=== PATIENT | male | born 1965 | race Caucasian/White ===

== ENCOUNTER 2018-04-30 13:22 | Inpatient (IN) ==
[2018-04-30] MEDS ORDERED: ALBUTEROL SULFATE/IPRATROPIUM 3 ML NEBU IH ONE ×2 (13:27)
[2018-04-30] MEDS ORDERED: METHYLPREDNISOLONE SOD SUCC/PF 125 MG/2 ML VIAL IV ONE (13:29)
[2018-04-30] MEDS ORDERED: METHYLPREDNISOLONE SOD SUCC/PF 125 MG/2 ML VIAL ONE (13:37)
[2018-04-30 13:56] LABS: Hematocrit 39.7 % (42.0-52.0); Hemoglobin 13.4 gm/dL (13.5-18.0); Mean Corpuscular Hemoglobin 28.7 pg (27-31); Mean Corpuscular Hgb Conc 33.8 g/dl (32-36); Mean Platelet Volume 10.4 fl (8-11.3); Neutrophil # 7.2 K/mm3 (1.3-6.0); Neutrophil % 75.5 % (42-75.0); Platelet Count 238 K/mm3 (150-450); Red Blood Count 4.67 M/mm3 (4.7-6.0); Red Cell Distribution Width 13.4 % (11.5-14.0); White Blood Count 9.5 K/mm3 (4.0-10.5)
[2018-04-30 14:11] LABS: ALT 45 U/L (19-67); AST 61 U/L (0-48); Albumin * 3.1 gm/dl (3.4-5.0); Alkaline Phosphatase * 101 U/L (50-170); Anion Gap 13.5 mmol/L (6.8-13.8); BNP * 270 pg/mL (5-140); BUN/Creatinine Ratio 13.5 (9.0-21.6); Bilirubin, Total 0.9 mg/dL (0.0-1.1); Blood Urea Nitrogen 14 mg/dL (6-23); Ca. Corrected For Albumin 8.9 mg/dL (8.4-10.2); Calcium * 8.5 mg/dL (7.9-10.9); Carbon Dioxide 24.4 mmol/L (24-32.6); Chloride 102 mmol/L (97-106); Glucose * 96 mg/dL (70-110); Potassium 3.9 mmol/L (3.4-4.6); Sodium 136 mmol/L (132-142); Total Protein 7.5 gm/dL (6.2-8.2); Troponin I Less than 0.017 ng/mL (0.00-0.10)
--- NOTE | 2018-04-30 15:08 | ERNOTE ---
Dyspnea - Date Date of Service: 04/30/18 - General Presenting Symptoms: shortness of breath, difficulty of breathing, wheezing Time Seen by Provider: 04/30/18 13:27 Source: patient Exam Limitations: no limitations - Immun/Allergies/Home Medications Immunizations: IMMUNIZATION HX Immunizations Up to Date Yes History of Influenza Vaccine No Allergies/Adverse Reactions: Allergies codeine Adverse Reaction (Verified 04/30/18 13:33) Nausea Home Medications: HOME MEDICATIONS escitalopram 5 mg tablet 5 mg PO DAILY #90 tab 03/16/18 [Last Taken Unknown] albuterol sulfate HFA 90 mcg/actuation aerosol inhaler 2 inh IH Q8H PRN 30 Days #8.5 g 04/28/18 [Last Taken Unknown] azithromycin 250 mg tablet See Rx Instructions PO .COMPLEX 5 Days #6 tab 04/28/18 [Last Taken Unknown] benzonatate 100 mg capsule 100 mg PO TID 10 Days #30 cap 04/28/18 [Last Taken Unknown] prednisone 20 mg tablet 40 mg PO DAILY 5 Days #10 tab 04/28/18 [Last Taken Unknown] - History of Present Illness Narrative: patient has had outpatient treatment for bronchitis, has continued to have respiratory difficulty, arrives in ed with o2 sats in low 80's Severity: moderate 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 Initiating event: Reports: upper resp illness Frequency of episodes: Reports: frequent episodes Modifying Factors - (Improves): Reports: nothing Modifying Factors (Worsens): Reports: activity Associated Symptoms-Dyspnea: Reports: cough, wheezing, dizziness, lightheadedness Prior Treatment: Reports: recently seen, treated by physician Review of Systems - Narrative Narrative: hx of copd - Review of Systems Constitutional: Present: See HPI, weakness, fatigue, malaise EYE: Present: no symptoms reported ENT: Present: no symptoms reported Respiratory: Present: See HPI, shortness of breath, cough, orthopnea, wheezing Cardiology: Present: no symptoms reported Gastrointestinal/Abdominal: Present: no symptoms reported Genitourinary: Present: no symptoms reported Musculoskeletal: Present: no symptoms reported Skin: Present: no symptoms reported Neurological: Present: no symptoms reported Endocrine: Present: no symptoms reported Hematologic/Lymphatic: Present: no symptoms reported Psych: Present: no symptoms reported All Other Systems: All systems neg except as marked Medical History (Last Reviewed 04/30/18 @ 13:33 by Irena Kwan RN) Hyperlipidemia (Chronic) Onset Date: Unknown GERD (gastroesophageal reflux disease) (Chronic) Onset Date: Unknown Conjunctivitis (Acute) Onset Date: Unknown Anxiety (Chronic) Onset Date: Unknown Surgical History: Surgical History (Last Reviewed 04/30/18 @ 13:33 by Irena Kwan RN) H/O esophagogastroduodenoscopy (Acute) Onset Date: Unknown S/P colonoscopy (Acute) Onset Date: Unknown S/P cholecystectomy (Acute) Onset Date: ~2003 Family History: Family History (Last Reviewed 04/30/18 @ 13:33 by Irena Kwan RN) Mother CHF (congestive heart failure) Diabetes Father Cancer Diabetes Social History: Preferred Language Dominican Smoking Status Current every day smoker Have you smoked in the past 12 Yes months Alcohol Use none Drug Use none (Last Updated 04/29/18 @ 14:59 by CASI Gross) No Social History Section defined Physical Exam - Physical Exam General Appearance: Present: moderate distress Head Exam: Present: normal inspection, no evidence of injury Eye Exam: Normal inspection: bilateral, PERRL: bilateral, EOMI: bilateral Ears, Nose, Throat: Present: normal ENT inspection, normal pharynx Neck: Present: normal inspection, nontender Respiratory: Present: respiratory distress, accessory muscle use, decreased breath sounds, expiration (prolonged), crackles, rales, rhonchi, wheezing Cardiovascular/Chest: Present: regular rate, rhythm, no murmur, normal peripheral pulses Peripheral Pulses: N=norm/S=strong/W=weak/B=bound/A=absent: Carotid (R): Normal, Carotid (L): Normal, Radial (R): Normal, Radial (L): Normal, Femoral (R): Normal, Femoral (L): Normal, Dorsalis-pedis (R): Normal, Dorsalis-pedis (L): Normal Gastrointestinal/Abdominal: Present: normal bowel sounds, nontender, nondistended, soft, no organomegaly Back Exam: Present: normal inspection, normal range of motion, no CVA tenderness, no vertebral tenderness Extremity Exam: Present: normal inspection, non-tender, normal range of motion, no edema Neurological Exam: Present: alert, oriented, normal mood/affect, no motor/sensory deficits Skin Exam: Present: normal color, warm/dry Lymphatic Exam: Present: no adenopathy ED Progress - Date and Time Seen: Date and Time: 04/30/18 15:04 patient improved, discussed results and labs with patient, recommend admission to observation, case discuseed with dr ospina who acerts admission - Results and Orders Patient's Lab Results:: I have reviewed the patient's lab results. - Vital Signs Patient's Vital Signs:: I have reviewed the patient's vital signs. Vital Signs: Vital Signs 04/30/18 13:28 04/30/18 13:30 04/30/18 13:35 Temperature 37.6 C Pulse Rate 94 100 Respiratory Rate 29 H 29 H Blood Pressure 133/79 O2 Sat by Pulse Oximetry 88 L 88 L 91 L 04/30/18 13:46 04/30/18 14:00 04/30/18 14:03 Temperature Pulse Rate 100 101 H 100 Respiratory Rate 29 H 31 H Blood Pressure 125/76 O2 Sat by Pulse Oximetry 97 96 04/30/18 14:30 04/30/18 14:44 Temperature Pulse Rate 99 Respiratory Rate 23 H Blood Pressure 122/66 O2 Sat by Pulse Oximetry 94 89 L - EKG EKG: NSR - X-Ray X-Ray #1 X-Ray: chest Interpretation: Discd w/ radiologist - interstitial lung disease, lingular pneumonia - Progress/Reassessment Chief Complaint: Dyspnea Progress:: Improved - Transfer of Care Expected Disposition: Admit Plan - Plan Plan: to admit to observation Departure Clinical Impression: Pneumonia, COPD (chronic obstructive pulmonary disease) with acute bronchitis - Departure Disposition: Home self-care Condition: Fair Instructions: Community-Acquired Pneumonia, Adult, [id number]
[2018-04-30] MEDS ORDERED: ALBUTEROL SULFATE 2.5 MG/0.5 ML VIAL.NEB IH PRN ×2 (15:25→17:45)
[2018-04-30] MEDS: NORMAL SALINE 1,000 ML IV PRN (16:27)
[2018-04-30] MEDS: AZITHROMYCIN 500 MG in DEXTROSE 5 % IN WATER 250 ML IV SCH ×2 (16:28)
[2018-04-30] MEDS ORDERED: ACETAMINOPHEN 500 MG TABLET PO PRN (17:33)
[2018-04-30] MEDS: METHYLPREDNISOLONE SOD SUCC/PF 40 MG/ML VIAL IV SCH ×2 (17:34→21:42)
--- NOTE | 2018-04-30 18:10 | HP ---
Chief Complaint - Chief Complaint Date of Service: 04/30/18 Time of Service: 17:53 Chief Complaint: I got difficulty breathing and fever for 1 week. History of Present Illness: 52 y/o male with PMHx of COPD and nicotine dependence was admitted to outpx observation for progressive SOB with hypoxemia that has been progressively worsening over the past few days. Delmi reports his symptoms started when he cleaned out his parents basement that had been shut up for over a year. He suspects that he must've inhaled mold and dust that is contained in the basement, because shortly after cleaning the basement he began having sob, fever, and weakness. Delmi was seen in the [facility] earlier thi week where he was prescribed oral antibx which he had not completed before coming to the ER. His difficulty breathing became severe and he was found to have low Ox saturation in [facility] f/u. Delmi was sent to ER from there. Medical History (Last Reviewed 04/30/18 @ 16:34 by Priyanka Morgan RN) Hyperlipidemia (Chronic) Onset Date: Unknown GERD (gastroesophageal reflux disease) (Chronic) Onset Date: Unknown Conjunctivitis (Acute) Onset Date: Unknown Anxiety (Chronic) Onset Date: Unknown Surgical History: Surgical History (Last Reviewed 04/30/18 @ 16:35 by Priyanka Morgan RN) H/O esophagogastroduodenoscopy (Acute) Onset Date: Unknown S/P colonoscopy (Acute) Onset Date: Unknown S/P cholecystectomy (Acute) Onset Date: ~2003 Family History: Family History (Last Reviewed 04/30/18 @ 16:35 by Priyanka Morgan RN) Mother CHF (congestive heart failure) Diabetes Father Cancer Diabetes Social History: Patient Lives/Resources 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 Smoking Status Current every day smoker Have you smoked in the past 12 Yes months Alcohol Use none Drug Use none (Last Updated 04/29/18 @ 14:59 by CASI Gross) No Social History Section defined Peds Patient Hx - Developmental: No Pertinent Hx Peds Patient Hx - Medical: No Pertinent Hx Peds Patient Hx - Cardiac/Respiratory: No Pertinent Hx Peds Patient Hx - Surgical: No Surgical History Patient History - Cancer: No Hx of Cancer Review Of Systems (GEN) - Review of Systems Generalized/Overall Review: Present: Weakness, Chills, Fever, Malaise EENTM: Present: No Symptoms Reported Respiratory: Present: Cough, Shortness of Breath Cardiac: Present: No Symptoms Reported Abdominal: Present: No Symptoms Reported Genitourinary: Present: No Symptoms Reported Musculoskeletal: Present: No Symptoms Reported Neurological: Present: No Symptoms Reported Skin: Present: No Symptoms Reported Endocrine: Present: No Symptoms Reported Immunizations: IMMUNIZATION HX Immunizations Up to Date Yes History of Influenza Vaccine No Allergies/Adverse Reactions: Allergies Allergy/AdvReac Type Severity Reaction Status Date / Time codeine AdvReac Mild Nausea Verified 04/30/18 16:36 Home Medications: HOME MEDICATIONS escitalopram 5 mg tablet 5 mg PO DAILY #90 tab 03/16/18 [Last Taken 04/28/18] albuterol sulfate HFA 90 mcg/actuation aerosol inhaler 2 inh IH Q8H PRN 30 Days #8.5 g 04/28/18 [Last Taken 04/29/18] azithromycin 250 mg tablet See Rx Instructions PO .COMPLEX 5 Days #6 tab 04/28/18 [Last Taken 04/29/18] benzonatate 100 mg capsule 100 mg PO TID 10 Days #30 cap 04/28/18 [Last Taken 04/29/18] prednisone 20 mg tablet 40 mg PO DAILY 5 Days #10 tab 04/28/18 [Last Taken Unknown] Exam - Exam Vital Signs: Vital Signs - Last Taken Temp 36.3 C 04/30/18 15:28 Pulse 84 04/30/18 15:28 Resp 20 04/30/18 15:28 BP 126/70 04/30/18 15:28 Pulse Ox 96 04/30/18 15:28 Constitutional: Present: Alert, Oriented x3, Cooperative, Well developed, Well nourished, Mild distress ENT Exam: Present: normal ENT inspection, hearing grossly normal, pharynx normal, TMs normal Eye Exam: bilateral eye: normal inspection, PERRL, EOMI Neck: Present: non-tender, full range of motion, supple, normal inspection, trachea midline Back Exam: Present: normal inspection, no CVA tenderness, no vertebral tenderness Breasts: Present: Exam deferred Respiratory: Present: decreased breath sounds, crackles Cardiovascular/Chest: Present: normal peripheral pulses, regular rate, rhythm, no chest tenderness, no edema, no gallop, no JVD, no murmur Peripheral Pulses: carotid (R): 4+, carotid (L): 4+, femoral (R): 4+, femoral (L): 4+, dorsalis-pedis (R): 4+, dorsalis-pedis (L): 4+, radial (R): 4+, radial (L): 4+ Abdomen: Present: Normal bowel sounds, soft, nontender, nondistended, no rebound tenderness /Rectal: Present: Exam deferred Extremity: Present: normal range of motion, non-tender, normal inspection, no pedal edema, no calf tenderness Skin Exam: Present: normal color, warm/dry, no cyanosis Lymphatic: Present: no adenopathy Neurologic: Present: piano maker II-XII nml as tested Appearance: Present: appropriate appearance, appropriate insight, neat, no memory impairment Eye contact: Present: cooperative, good eye contact, normal speech Thoughts: Present: normal thought pattern, no apparent hallucination Diagnostic Studies: Abnormal Lab Results 04/30/18 04/30/18 04/30/18 Range/Units 13:27 13:45 13:45 RBC 4.67 L (4.7-6.0) M/mm3 Hgb 13.4 L (13.5-18.0) gm/dL Hct 39.7 L (42.0-52.0) % Immature Gran % (Auto) 0.70 H (0.001-0.429) % Immature Gran # (Auto) 0.07 H (0.000-0.0310) K/mm3 Neutrophils % 75.5 H (42-75.0) % Lymphocytes % 15.3 L (20-51) % Neutrophils # 7.2 H (1.3-6.0) K/mm3 Lymphocytes # 1.45 L (1.5-3.5) k/mm3 pCO2 31.6 L (35.0-48.0) mmHg AST 61 H (0-48) U/L B-Natriuretic Peptide 270 H (5-140) pg/mL Albumin 3.1 L (3.4-5.0) gm/dl Laboratory Results WBC 9.5 K/mm3 (4.0-10.5) 04/30/18 13:45 RBC 4.67 M/mm3 (4.7-6.0) L 04/30/18 13:45 Hgb 13.4 gm/dL (13.5-18.0) L 04/30/18 13:45 Hct 39.7 % (42.0-52.0) L 04/30/18 13:45 MCV 85.0 fl (78-100) 04/30/18 13:45 MCH 28.7 pg (27-31) 04/30/18 13:45 MCHC 33.8 g/dl (32-36) 04/30/18 13:45 RDW 13.4 % (11.5-14.0) 04/30/18 13:45 Plt Count 238 K/mm3 (150-450) 04/30/18 13:45 MPV 10.4 fl (8-11.3) 04/30/18 13:45 Immature Gran % (Auto) 0.70 % (0.001-0.429) H 04/30/18 13:45 Immature Gran # (Auto) 0.07 K/mm3 (0.000-0.0310) H 04/30/18 13:45 Neutrophils % 75.5 % (42-75.0) H 04/30/18 13:45 Lymphocytes % 15.3 % (20-51) L 04/30/18 13:45 Monocytes % 7.7 % (0.0-9) 04/30/18 13:45 Eosinophils % 0.4 % (0.0-3.0) 04/30/18 13:45 Basophils % 0.4 % (0.0-1.0) 04/30/18 13:45 Nucleated RBC % 0.0 k/mm3 (0-1) 04/30/18 13:45 Neutrophils # 7.2 K/mm3 (1.3-6.0) H 04/30/18 13:45 Lymphocytes # 1.45 k/mm3 (1.5-3.5) L 04/30/18 13:45 Monocytes # 0.7 k/mm3 (0.0-1.0) 04/30/18 13:45 Eosinophils # 0.0 k/mm3 (0.0-0.7) 04/30/18 13:45 Absolute Basophils 0.0 k/mm3 (0.0-0.1) 04/30/18 13:45 pCO2 31.6 mmHg (35.0-48.0) L 04/30/18 13:27 pO2 92.7 mmHg (83.0-108.0) 04/30/18 13:27 HCO3 21.2 mmol/L (21.0-28.0) 04/30/18 13:27 Total CO2 22.2 mmol/L (19.0-24.0) 04/30/18 13:27 Base Excess -2.0 mmol/L (-2.0-3.0) 04/30/18 13:27 ABG pH 7.45 (7.35-7.45) 04/30/18 13:27 ABG O2 Sat (Measured) 97.4 % (94.0-98.0) 04/30/18 13:27 Sodium 136 mmol/L (132-142) 04/30/18 13:45 Plasma Sodium 136 mmol/L (130-142) 04/30/18 13:45 Potassium 3.9 mmol/L (3.4-4.6) 04/30/18 13:45 Chloride 102 mmol/L (97-106) 04/30/18 13:45 Carbon Dioxide 24.4 mmol/L (24-32.6) 04/30/18 13:45 Anion Gap 13.5 mmol/L (6.8-13.8) 04/30/18 13:45 BUN 14 mg/dL (6-23) 04/30/18 13:45 Creatinine 1.04 mg/dL (0.4-1.4) 04/30/18 13:45 Est GFR (Non-Af Amer) 79 mL/min (60-130) 04/30/18 13:45 BUN/Creatinine Ratio 13.5 (9.0-21.6) 04/30/18 13:45 Random Glucose 96 mg/dL (70-110) 04/30/18 13:45 Calcium 8.5 mg/dL (7.9-10.9) 04/30/18 13:45 Calcium Adj for Albumin 8.9 mg/dL (8.4-10.2) 04/30/18 13:45 Total Bilirubin 0.9 mg/dL (0.0-1.1) 04/30/18 13:45 AST 61 U/L (0-48) H 04/30/18 13:45 ALT 45 U/L (19-67) 04/30/18 13:45 Alkaline Phosphatase 101 U/L (50-170) 04/30/18 13:45 Troponin I Less than 0.017 ng/mL (0.00-0.10) 04/30/18 13:45 B-Natriuretic Peptide 270 pg/mL (5-140) H 04/30/18 13:45 Total Protein 7.5 gm/dL (6.2-8.2) 04/30/18 13:45 Albumin 3.1 gm/dl (3.4-5.0) L 04/30/18 13:45 Assessment/Plan - Narrative Narrative: Px was admitted to outpatient observation for Left lingular BKP and COPD exacerbation. He will be managed with IV antibx, IV steroids, BRENDA, and oxygen therapy. We will reevaluate him in the morning for improvement. F/U labs were ordered. - Assessment/Plan (1) Left upper lobe pneumonia Problem: Acute (2) COPD exacerbation Problem: Acute
[2018-04-30] MEDS: FAMOTIDINE 20 MG in DEXTROSE 5 % IN WATER 100 ML IV SCH ×2 (19:13)
[2018-05-01] MEDS: NORMAL SALINE 1,000 ML IV PRN ×3 (01:28→20:59)
[2018-05-01] MEDS: METHYLPREDNISOLONE SOD SUCC/PF 40 MG/ML VIAL IV SCH ×3 (03:39→15:23)
[2018-05-01] MEDS: FAMOTIDINE 20 MG in DEXTROSE 5 % IN WATER 100 ML IV SCH ×4 (05:16→16:51)
[2018-05-01 05:33] LABS: Hematocrit 38.9 % (42.0-52.0); Mean Cell Volume 84.4 fl (78-100); Mean Corpuscular Hemoglobin 28.2 pg (27-31); Mean Corpuscular Hgb Conc 33.4 g/dl (32-36); Mean Platelet Volume 10.3 fl (8-11.3); Neutrophil # 10.8 K/mm3 (1.3-6.0); Neutrophil % 91.2 % (42-75.0); Platelet Count 258 K/mm3 (150-450); Red Blood Count 4.61 M/mm3 (4.7-6.0); Red Cell Distribution Width 13.1 % (11.5-14.0); White Blood Count 11.8 K/mm3 (4.0-10.5)
[2018-05-01] MEDS: BENZONATATE 100 MG CAPSULE PO SCH ×3 (08:20→16:46)
[2018-05-01] MEDS: ESCITALOPRAM OXALATE 10 MG TAB PO SCH (08:20)
--- NOTE | 2018-05-01 12:35 | PN ---
Subjective - Date and Time Seen Date: 05/01/18 Time: 12:26 Subjective Narrative: I still have SOB with mild exertion Objective Objective Narrative: 52 y/o male admitted for left upper lobe pneumonia was evaluated at bedside and was found to be acutely ill with productive cough and SOB. Px remains dependent on o2 and breathing treatment with BRENDA. Breathing treatment with Duoneb was ordered round the clock to improve his breathing. WBC showed a mildly increase but that might be secondary to IV steroids. We will continue IV antibx, IV steroids, O2, and breathing treated by RT. - Review of Systems Generalized/Overall Review: Reports: No Symptoms Reported EENTM: Reports: No Symptoms Reported Respiratory: Reports: Cough, Shortness of Breath, Wheezing Cardiac: Reports: No Symptoms Reported Abdominal: Reports: No Symptoms Reported Genitourinary Symptoms: Reports: No Symptoms Reported Musculoskeletal Complaints: Reports: No Symptoms Reported Neurological: Reports: No Symptoms Reported Skin: Reports: No Symptoms Reported Endocrine: Reports: No Symptoms Reported Misc: All systems neg except as marked - Vitals Vitals: Last Vital Signs Temp 36.5 C 05/01/18 10:00 Pulse 76 05/01/18 10:00 Resp 20 05/01/18 10:00 BP 116/71 05/01/18 10:00 Pulse Ox 93 05/01/18 10:00 - Abnormal Lab Findings Abnormal Lab Findings: Abnormal Lab Results 04/30/18 04/30/18 04/30/18 Range/Units 13:27 13:45 13:45 WBC (4.0-10.5) K/mm3 RBC 4.67 L (4.7-6.0) M/mm3 Hgb 13.4 L (13.5-18.0) gm/dL Hct 39.7 L (42.0-52.0) % Immature Gran % (Auto) 0.70 H (0.001-0.429) % Immature Gran # (Auto) 0.07 H (0.000-0.0310) K/mm3 Neutrophils % 75.5 H (42-75.0) % Lymphocytes % 15.3 L (20-51) % Neutrophils # 7.2 H (1.3-6.0) K/mm3 Lymphocytes # 1.45 L (1.5-3.5) k/mm3 pCO2 31.6 L (35.0-48.0) mmHg AST 61 H (0-48) U/L B-Natriuretic Peptide 270 H (5-140) pg/mL Albumin 3.1 L (3.4-5.0) gm/dl Acetaminophen (10.0-30.0) mcg/mL 04/30/18 05/01/18 Range/Units 13:45 05:05 WBC 11.8 H D (4.0-10.5) K/mm3 RBC 4.61 L (4.7-6.0) M/mm3 Hgb 13.0 L (13.5-18.0) gm/dL Hct 38.9 L (42.0-52.0) % Immature Gran % (Auto) 0.80 H (0.001-0.429) % Immature Gran # (Auto) 0.10 H (0.000-0.0310) K/mm3 Neutrophils % 91.2 H (42-75.0) % Lymphocytes % 6.1 L (20-51) % Neutrophils # 10.8 H (1.3-6.0) K/mm3 Lymphocytes # 0.72 L (1.5-3.5) k/mm3 pCO2 (35.0-48.0) mmHg AST (0-48) U/L B-Natriuretic Peptide (5-140) pg/mL Albumin (3.4-5.0) gm/dl Acetaminophen Less than 0.2 L (10.0-30.0) mcg/mL - Exam Constitutional: Present: Alert, Oriented x3, Cooperative, Well developed, Well nourished, Mild distress ENT Exam: Present: normal ENT inspection, hearing grossly normal, pharynx normal, TMs normal Neck: Present: non-tender, full range of motion, supple, normal inspection, trachea midline Breasts: Present: Exam deferred Respiratory: Present: decreased breath sounds, wheezing Cardiovascular/Chest: Present: normal peripheral pulses, regular rate, rhythm, no chest tenderness, no edema, no gallop, no JVD, no murmur Abdomen: Present: Normal bowel sounds, soft, nontender, nondistended, no rebound tenderness /Rectal: Present: Exam deferred Extremity: Present: normal range of motion, non-tender, normal inspection, no pedal edema, no calf tenderness Skin Exam: Present: normal color, warm/dry, no cyanosis Lymphatic: Present: no adenopathy Neurologic: Present: algologist II-XII nml as tested Appearance: Present: appropriate appearance Eye contact: Present: cooperative, good eye contact, normal speech Thoughts: Present: normal thought pattern Assessment/Plan - Problems/Diagnosis (1) Left upper lobe pneumonia Problem: Acute (2) COPD exacerbation Problem: Acute
[2018-05-01] MEDS: ALBUTEROL SULFATE/IPRATROPIUM 3 ML NEBU IH SCH ×3 (12:48→18:01)
[2018-05-01] MEDS: AZITHROMYCIN 500 MG in DEXTROSE 5 % IN WATER 250 ML IV SCH ×2 (15:25)
[2018-05-01] MEDS: LEVALBUTEROL HCL 1.25 MG/3 ML AMPUL IH SCH (22:34)
[2018-05-02] MEDS: LEVALBUTEROL HCL 1.25 MG/3 ML AMPUL IH SCH ×4 (02:06→14:41)
[2018-05-02] MEDS: FAMOTIDINE 20 MG in DEXTROSE 5 % IN WATER 100 ML IV SCH ×2 (05:30)
[2018-05-02] MEDS ORDERED: METHYLPREDNISOLONE SOD SUCC/PF 125 MG/2 ML VIAL IV SCH (06:00)
[2018-05-02] MEDS: NORMAL SALINE 1,000 ML IV PRN (06:39)
[2018-05-02] MEDS: ESCITALOPRAM OXALATE 10 MG TAB PO SCH (08:53)
[2018-05-02] MEDS: BENZONATATE 100 MG CAPSULE PO SCH ×2 (08:53→12:42)
--- NOTE | 2018-05-02 12:35 | DS ---
(1) Left upper lobe pneumonia Problem: Acute Qualifiers: Pneumonia type: due to unspecified organism Qualified Code(s): J18.1 - Lobar pneumonia, unspecified organism (2) COPD exacerbation Problem: Resolved Description of Stay: 52 y/o male admitted for Left upper lobe pneumonia and COPD exacerbation, was evaluated at bedside and was found to afebrile and in no acute distress. Px has shown improvement since being admitted. His SOB has resolved after treatment with round the clock breathing treatments with BRENDA and anticholinergics, IV antibiotics, IV steroids. Px reports less coughing and says he feels stronger.Therefore, patient will be discharged with additional days of Po antibx, po steroids, and instructions to f/u with his PCP. Procedures Performed: none Results and Findings: Pending Mircobiology Results 04/30/18 14:18 Blood Blood Culture - Preliminary NO GROWTH 24 HOURS 04/30/18 13:45 Blood Blood Culture - Preliminary NO GROWTH 24 HOURS Lab Pending Results 04/30/18 13:27: pCO2 31.6 L, pO2 92.7, HCO3 21.2, Total CO2 22.2, Base Excess - 2.0, ABG pH 7.45, ABG O2 Sat (Measured) 97.4 04/30/18 13:45: WBC 9.5, RBC 4.67 L, Hgb 13.4 L, Hct 39.7 L, MCV 85.0, MCH 28.7, MCHC 33.8, RDW 13.4, Plt Count 238, MPV 10.4, Immature Gran % (Auto) 0.70 H, Immature Gran # (Auto) 0.07 H, Neutrophils % 75.5 H, Lymphocytes % 15.3 L, Monocytes % 7.7, Eosinophils % 0.4, Basophils % 0.4, Nucleated RBC % 0.0, Neutro phils # 7.2 H, Lymphocytes # 1.45 L, Monocytes # 0.7, Eosinophils # 0.0, Absolute Basophils 0.0 04/30/18 13:45: Sodium 136, Plasma Sodium 136, Potassium 3.9, Chloride 102, Car bon Dioxide 24.4, Anion Gap 13.5, BUN 14, Creatinine 1.04, Est GFR (Non-Af Amer) 79, BUN/Creatinine Ratio 13.5, Random Glucose 96, Calcium 8.5, Calcium Adj for Albumin 8.9, Total Bilirubin 0.9, AST 61 H, ALT 45, Alkaline Phosphatase 101, Troponin I Less than 0.017, B-Natriuretic Peptide 270 H, Total Protein 7.5, Albumin 3.1 L 04/30/18 13:45: Acetaminophen Less than 0.2 L 05/01/18 05:05: WBC 11.8 H D, RBC 4.61 L, Hgb 13.0 L, Hct 38.9 L, MCV 84.4, MCH 28.2, MCHC 33.4, RDW 13.1, Plt Count 258, MPV 10.3, Immature Gran % (Auto) 0.80 H, Immature Gran # (Auto) 0.10 H, Neutrophils % 91.2 H, Lymphocytes % 6.1 L, Monocytes % 1.6, Eosinophils % 0.0, Basophils % 0.3, Nucleated RBC % 0.0, Neutrophils # 10.8 H, Lymphocytes # 0.72 L, Monocytes # 0.2, Eosinophils # 0.0, Absolute Basophils 0.0 Discharge Location: Home Disposition: Home self-care Condition: Fair Face to Face Encounter completed per [facility] Guidelines: No Discharge Activity: Activity as tolerated Prescriptions (Any new or edited meds): Azithromycin 250 mg PO DAILY 4 Days #4 tablet Levalbuterol HCl [Xopenex] 1.25 mg IH Q6H PRN #30 vial PRN Reason: Shortness Of Breath/Wheezing Prednisone 5 mg PO DAILY 5 Days #5 tablet Complete Home Medications List: Complete Home Medication List: escitalopram 5 mg tablet 5 mg PO DAILY #90 tab 03/16/18 albuterol sulfate HFA 90 mcg/actuation aerosol inhaler 2 inh IH Q8H PRN 30 Days #8.5 g 04/28/18 azithromycin 250 mg tablet See Rx Instructions PO .COMPLEX 5 Days #6 tab 04/28/18 benzonatate 100 mg capsule 100 mg PO TID 10 Days #30 cap 04/28/18 prednisone 20 mg tablet 40 mg PO DAILY 5 Days #10 tab 04/28/18 Acetaminophen [Tylenol] 1,000 mg PO Q6H PRN tablet 05/02/18 Azithromycin 250 mg PO DAILY 4 Days #4 tablet 05/02/18 Levalbuterol HCl [Xopenex] 1.25 mg IH Q6H PRN #30 vial 05/02/18 Prednisone 5 mg PO DAILY 5 Days #5 tablet 05/02/18
[2018-05-02] MEDS ORDERED: LEVALBUTEROL HCL 1.25 MG/3 ML AMPUL IH SCH (13:45)
[2018-05-02 15:11] VITALS: BP 136/73
[2018-05-02] MEDS ORDERED: METHYLPREDNISOLONE SOD SUCC/PF 40 MG/ML VIAL IV SCH (18:00)
== END 2018-05-02 15:29 | disposition home or self-care (01) | DRG 190 ==
LOC: MS 13:22 → ER 13:22 → OBSVTOIN 15:12 → MS 15:35 → UNDODISIN 05-02 15:29
PROVIDERS: ADMIT Family Medicine; ATTEND Family Medicine
CPT/HCPCS: 36415; 36600; 71020; 71046; 80053; 80329; 82803; 83519; 83880; 84484; 85025; 87040; 90686; 93005; 94640; 94664; 94760; 94762; G0480